=== PATIENT | female | born 1945 | race Caucasian/White ===

== ENCOUNTER 2024-05-15 10:11 | Inpatient (IN) | payer BC, MEDICAID ==
[~2024-05-15] VITALS: Ht 167.6 cm; Wt 81.2 kg
[2024-05-15] MEDS ORDERED: levoFLOXacin 750MG/D5W 150 ML IV ONE (10:30)
[2024-05-15 10:51] LABS: BASOPHILS # (AUTO) 0.1 K/UL (0.0-0.2); BASOPHILS % (AUTO) 0.4 % (0.0-2.0); DIFFERENTIAL COMMENT 1; EOSINOPHILS % (AUTO) 0.3 % (0.0-7.0); HEMATOCRIT 37.2 % (31.2-41.9); HEMOGLOBIN 12.3 g/dL (10.9-14.3); LYMPHOCYTES # (AUTO) 0.4 K/uL (0.8-4.8); LYMPHOCYTES % (AUTO) 2.8 % (20.5-51.5); MEAN CORPUSCULAR HEMOGLOBIN 28.8 uug (24.7-32.8); MEAN CORPUSCULAR HGB CONC 33 g/dL (32.3-35.6); MEAN CORPUSCULAR VOLUME 87.2 fL (75.5-95.3); MONOCYTES # (AUTO) 1.3 K/uL (0.1-1.30); MONOCYTES % (AUTO) 8.8 % (0.0-11.0); NEUTROPHILS # (AUTO) 13.2 K/uL (1.8-8.9); NEUTROPHILS % (AUTO) 87.7 % (38.5-71.5); PLATELET COUNT (AUTO) 230 K/uL (179-408); RED BLOOD CELL COUNT(AUTO) 4.27 MIL/uL (3.63-4.92); RED CELL DISTRIBUTION WIDTH 15.7 % (12.3-17.7)
[2024-05-15] MEDS ORDERED: DEXAMETHASONE SOD PHOSPHATE 10 MG INJ ONE (10:52)
[2024-05-15 10:56] LABS: ABG BASE EXCESS 5.7 mmol/L (-2.0-3.0); ABG PCO2 37.6 mmHg (32.0-45.0); ABG PH 7.505 (7.350-7.450); ABG PO2 80.7 mmHg (83.0-108.0); ABG SITE RIGHT RADIAL; ABG TOTAL HEMOGLOBIN 13.2 G/dL (12.0-16.0); AaDO2 96.8 mmHg; COHb 0.9 % (0.5-1.5); MetHb 0.2 % (0.0-1.5); O2Hb 95.6 % (94.0-98.0)
[2024-05-15] MEDS: DEXAMETHASONE SOD PHOSPHATE 4 MG INJ IV ONE (10:58)
[2024-05-15] MEDS: IV NORMAL SALINE 1000 ML BAG IV ONE (10:58)
[2024-05-15 10:59] LABS: CALCIUM 9.1 mg/dL (8.5-10.1); CARBON DIOXIDE 28 mmol/L (21-32); CHLORIDE 106 mmol/L (98-107); GLUCOSE 113 mg/dL (74-106); SODIUM SERUM 144 mmol/L (136-145); UREA NITROGEN, BLOOD 19 mg/dL (7-18)
[2024-05-15] MEDS ORDERED: CLINDAMYCIN 600 MG PIGGYBACK**ER OMNI IV ONE (11:04)
[2024-05-15] MEDS: CLINDAMYCIN PHOSPHATE IV 600 MG in IV DEXTROSE 5% 100 ML IV ONE (11:08)
[2024-05-15 11:15] LABS: ALANINE AMINOTRANSFERASE 6 U/L (14-59); ALBUMIN 2.8 g/dL (3.4-5.0); ALKALINE PHOSPHATASE 89 U/L (50-136); ASPARTATE AMINOTRANSFERASE 11 U/L (15-37); BILIRUBIN,DIRECT 0.2 mg/dL (0.0-0.2); NT-PRO BNP 474 pg/mL (0-125); TOTAL PROTEIN, SERUM 6.4 g/dL (6.4-8.2)
[2024-05-15] MEDS ORDERED: CEFEPIME HCL 1 G VIAL ONE (11:43)
[2024-05-15] MEDS: CEFEPIME HCL 1 G in IV DEXTROSE 5% 50 ML IV ONE (11:54)
[2024-05-15 12:11] LABS: *BILIRUBIN,URIN NEGATIVE (NEGATIVE); *BLOOD, URINE NEGATIVE (NEGATIVE); *CLARITY,URINE CLEAR (CLEAR); *COLOR,URINE YELLOW (YELLOW); *KETONES,URINE NEGATIVE (NEGATIVE); *PROTEIN,URINE NEGATIVE (NEGATIVE); *UROBILINOGEN,URINE 0.2 E.U./dl (NORMAL); LEUKOCYTE ESTERASE ,URINE NEGATIVE (NEGATIVE); NITRITE, URINE NEGATIVE (NEGATIVE); PH,URINE 6.5 (5.0-8.0); UGLUCOSE NEGATIVE (NEGATIVE)
[2024-05-15] MEDS ORDERED: QUET25TA PO (12:15)
[2024-05-15] MEDS ORDERED: [UNRECOGNIZED DRUG - OTHER] PO (12:15)
[2024-05-15] MEDS ORDERED: FURO40TA5 PO (12:15)
[2024-05-15] MEDS ORDERED: GABA300C PO (12:15)
[2024-05-15] MEDS ORDERED: AZITHROMYCIN 500MG/ D5W 250ML IVPB **ER PYXIS ONLY IV ONE (12:27)
[2024-05-15] MEDS ORDERED: MORPHINE SULFATE 2 MG/1 ML DISP.SYRIN IVP PRN (12:30)
[2024-05-15] MEDS ORDERED: hydrALAZINE HCL 20 MG/1 ML VIAL IV PRN (12:30)
[2024-05-15] MEDS ORDERED: ALBUTEROL SULFATE 8 GM HFA.AER.AD IH PRN (12:30)
[2024-05-15] MEDS ORDERED: ONDANSETRON 4 MG/2 ML VIAL IV PRN (12:30)
[2024-05-15] MEDS: AZITHROMYCIN IV 500 MG in IV DEXTROSE 5% 250 ML IV ONE (12:39)
[2024-05-15] MEDS ORDERED: CEFEPIME HCL 1 G in IV DEXTROSE 5% 50 ML IV SCH (14:00)
[2024-05-15 14:53] VITALS: BP 111/52; TEMP 97.8; O2SAT 98
[2024-05-15] MEDS: QUETIAPINE FUMARATE 25 MG TABLET PO SCH (17:23)
[2024-05-15] MEDS: HEPARIN SODIUM,PORCINE 5,000 UNITS/ML VIAL SQ SCH (17:24)
[2024-05-15] MEDS: VANCOMYCIN IV 1,000 MG in IV DEXTROSE 5% 250 ML IV SCH (17:24)
[2024-05-15 19:47] VITALS: BP 105/63; TEMP 97.3; O2SAT 93
[2024-05-15] MEDS: REMEDY ESSENTIAL ZINC PASTE 113 GM TOP SCH (20:32)
[2024-05-15] MEDS: CEFEPIME HCL 1 G in IV DEXTROSE 5% 50 ML IV SCH (22:57)
[2024-05-16] VITALS (9 sets, daily range): BP systolic 101–118; BP diastolic 44–47; TEMP 97.7–98.1; O2SAT 95–98
[2024-05-16 07:06] LABS: BASOPHILS % (AUTO) 0.4 % (0.0-2.0); EOSINOPHILS % (AUTO) 0.1 % (0.0-7.0); HEMATOCRIT 34.5 % (31.2-41.9); HEMOGLOBIN 11.4 g/dL (10.9-14.3); LYMPHOCYTES % (AUTO) 7.7 % (20.5-51.5); MEAN CORPUSCULAR HEMOGLOBIN 28.9 uug (24.7-32.8); MEAN CORPUSCULAR HGB CONC 33 g/dL (32.3-35.6); MEAN CORPUSCULAR VOLUME 87.2 fL (75.5-95.3); MONOCYTES % (AUTO) 7.7 % (0.0-11.0); NEUTROPHILS # (AUTO) 11.1 K/uL (1.8-8.9); NEUTROPHILS % (AUTO) 84.1 % (38.5-71.5); PLATELET COUNT (AUTO) 237 K/uL (179-408); RED BLOOD CELL COUNT(AUTO) 3.95 MIL/uL (3.63-4.92); RED CELL DISTRIBUTION WIDTH 15.7 % (12.3-17.7); WHITE BLOOD COUNT (AUTO) 13.2 K/uL (3.8-11.8)
[2024-05-16 07:27] LABS: DIFFERENTIAL COMMENT 1
[2024-05-16 07:49] LABS: ALANINE AMINOTRANSFERASE 13 U/L (14-59); ALBUMIN 2.2 g/dL (3.4-5.0); ALKALINE PHOSPHATASE 71 U/L (50-136); ASPARTATE AMINOTRANSFERASE 10 U/L (15-37); BILIRUBIN,TOTAL 0.5 mg/dL (0.2-1.0); CALCIUM 8.2 mg/dL (8.5-10.1); CARBON DIOXIDE 28 mmol/L (21-32); CHLORIDE 107 mmol/L (98-107); CREATININE 0.7 mg/dL (0.6-1.3); GLUCOSE 118 mg/dL (74-106); PHOSPHOROUS 2.4 mg/dL (2.5-4.9); POTASSIUM 3.2 mmol/L (3.5-5.1); SODIUM SERUM 142 mmol/L (136-145); TOTAL PROTEIN, SERUM 5.7 g/dL (6.4-8.2); UREA NITROGEN, BLOOD 16 mg/dL (7-18)
[2024-05-16] MEDS ORDERED: [UNRECOGNIZED DRUG - OTHER] PO SCH (09:00)
[2024-05-16] MEDS: GABAPENTIN 300 MG CAPSULE PO SCH ×2 (09:00→21:40)
[2024-05-16] MEDS: FUROSEMIDE 40 MG TABLET PO SCH (09:00)
[2024-05-16] MEDS: FLUTICASONE/VILANTEROL 1 EACH BLST.W.DEV INH SCH (09:03)
[2024-05-16] MEDS ORDERED: ALBU2.5V38 IH (12:32)
[2024-05-16] MEDS ORDERED: IPRA0.2S48 NEB (12:32)
[2024-05-16] MEDS: ALBUTEROL SULFATE 1.25 MG/3 ML NEBU NEB SCH (13:32)
[2024-05-16] MEDS: NICOTINE 7 MG/24HR PATCH TD SCH (13:45)
[2024-05-16] MEDS: POTASSIUM CHLORIDE 20 MEQ TAB.PRT.SR PO SCH (13:46)
[2024-05-16] MEDS: NEUTRA PHOS PACKET PO ONE (16:41)
[2024-05-16] MEDS: QUETIAPINE FUMARATE 25 MG TABLET PO SCH (21:28)
[2024-05-16] MEDS ORDERED: GABAPENTIN 100 MG CAPSULE ONE (21:34)
[2024-05-17] VITALS (10 sets, daily range): BP systolic 102–127; BP diastolic 43–59; TEMP 97.9–98.2; O2SAT 94–98
[2024-05-17] MEDS: ACETAMINOPHEN 325 MG TABLET PO PRN (02:55)
[2024-05-17 07:32] LABS: BASOPHILS # (AUTO) 0.1 K/UL (0.0-0.2); BASOPHILS % (AUTO) 0.6 % (0.0-2.0); EOSINOPHILS # (AUTO) 0.2 K/uL (0.0-0.7); EOSINOPHILS % (AUTO) 1.5 % (0.0-7.0); HEMATOCRIT 33.8 % (31.2-41.9); HEMOGLOBIN 11.2 g/dL (10.9-14.3); LYMPHOCYTES # (AUTO) 0.8 K/uL (0.8-4.8); LYMPHOCYTES % (AUTO) 7.2 % (20.5-51.5); MEAN CORPUSCULAR HEMOGLOBIN 28.9 uug (24.7-32.8); MEAN CORPUSCULAR HGB CONC 33 g/dL (32.3-35.6); MEAN CORPUSCULAR VOLUME 87.1 fL (75.5-95.3); MONOCYTES # (AUTO) 1.3 K/uL (0.1-1.30); MONOCYTES % (AUTO) 11.6 % (0.0-11.0); NEUTROPHILS % (AUTO) 79.1 % (38.5-71.5); PLATELET COUNT (AUTO) 221 K/uL (179-408); RED BLOOD CELL COUNT(AUTO) 3.88 MIL/uL (3.63-4.92); WHITE BLOOD COUNT (AUTO) 11.4 K/uL (3.8-11.8)
[2024-05-17 07:38] LABS: DIFFERENTIAL COMMENT 1
[2024-05-17 07:49] LABS: CALCIUM 8.2 mg/dL (8.5-10.1); CARBON DIOXIDE 27 mmol/L (21-32); CHLORIDE 110 mmol/L (98-107); CREATININE 0.8 mg/dL (0.6-1.3); GLUCOSE 84 mg/dL (74-106); PHOSPHOROUS 2.2 mg/dL (2.5-4.9); POTASSIUM 3.5 mmol/L (3.5-5.1); SODIUM SERUM 144 mmol/L (136-145); UREA NITROGEN, BLOOD 15 mg/dL (7-18)
[2024-05-17] MEDS ORDERED: GEMTESA 75 MG PO SCH (09:00)
[2024-05-17] MEDS: POTASSIUM PHOSPHATE MM 7.5 MMOL in IV NORMAL SALINE 97.5 ML IV ONE (12:26)
[2024-05-17] MEDS: GEMTESA 75 MG PO SCH (19:57)
[2024-05-17] MEDS: CEFEPIME HCL 2 GM in IV DEXTROSE 5% 100 ML IV SCH (20:46)
[2024-05-18] VITALS (11 sets, daily range): BP systolic 97–129; BP diastolic 43–65; TEMP 97.7–98.6; O2SAT 95–100
[2024-05-18 08:24] LABS: BASOPHILS # (AUTO) 0.1 K/UL (0.0-0.2); BASOPHILS % (AUTO) 0.6 % (0.0-2.0); EOSINOPHILS # (AUTO) 0.3 K/uL (0.0-0.7); EOSINOPHILS % (AUTO) 3.3 % (0.0-7.0); HEMATOCRIT 34.7 % (31.2-41.9); HEMOGLOBIN 11.6 g/dL (10.9-14.3); LYMPHOCYTES # (AUTO) 0.9 K/uL (0.8-4.8); LYMPHOCYTES % (AUTO) 10.1 % (20.5-51.5); MEAN CORPUSCULAR HEMOGLOBIN 29.5 uug (24.7-32.8); MEAN CORPUSCULAR HGB CONC 33 g/dL (32.3-35.6); MEAN CORPUSCULAR VOLUME 88.3 fL (75.5-95.3); MONOCYTES % (AUTO) 10.5 % (0.0-11.0); NEUTROPHILS # (AUTO) 6.9 K/uL (1.8-8.9); NEUTROPHILS % (AUTO) 75.5 % (38.5-71.5); PLATELET COUNT (AUTO) 213 K/uL (179-408); RED BLOOD CELL COUNT(AUTO) 3.93 MIL/uL (3.63-4.92); RED CELL DISTRIBUTION WIDTH 16.4 % (12.3-17.7); WHITE BLOOD COUNT (AUTO) 9.2 K/uL (3.8-11.8)
[2024-05-18 08:47] LABS: DIFFERENTIAL COMMENT 1
[2024-05-18 09:17] LABS: ALANINE AMINOTRANSFERASE 12 U/L (14-59); ALBUMIN 2.1 g/dL (3.4-5.0); ALKALINE PHOSPHATASE 73 U/L (50-136); ASPARTATE AMINOTRANSFERASE 8 U/L (15-37); BILIRUBIN,TOTAL 0.9 mg/dL (0.2-1.0); CALCIUM 8.2 mg/dL (8.5-10.1); CARBON DIOXIDE 28 mmol/L (21-32); CHLORIDE 106 mmol/L (98-107); CHOLESTEROL 125 mg/dL (<200); CREATININE 0.7 mg/dL (0.6-1.3); GLUCOSE 83 mg/dL (74-106); HDL CHOLESTEROL 48 mg/dL (40-60); PHOSPHOROUS 2.7 mg/dL (2.5-4.9); POTASSIUM 3.5 mmol/L (3.5-5.1); SODIUM SERUM 142 mmol/L (136-145); TOTAL PROTEIN, SERUM 5.7 g/dL (6.4-8.2); TRIGLYCERIDES 90 MG/DL (30-150); UREA NITROGEN, BLOOD 12 mg/dL (7-18)
[2024-05-18 10:15] LABS: THYROID STIMULATING HORMONE 2.716 mIU/mL (0.358-3.740)
[2024-05-18] MEDS: CLOTRIMAZOLE 1% CREAM 30 GM TUBE TOP SCH (13:04)
[2024-05-18] MEDS: ENSURE ENLIVE (VAN) 240 ML LIQUID PO SCH (17:00)
[2024-05-19] VITALS (12 sets, daily range): BP systolic 95–134; BP diastolic 44–81; TEMP 97.8–99.2; O2SAT 88–99
[2024-05-19] MEDS ORDERED: LEVO500T90 PO (16:05)
== END 2024-05-19 17:45 | disposition home health service (06) | DRG 871 ==
LOC: ER 10:11 → TELE3 10:36 → MEDSURG3 15:01
PROVIDERS: ADMIT Internal Medicine; ATTEND Internal Medicine
PROC: 05HD33Z Insertion of Infusion Device into Right Cephalic Vein, Percutaneous Approach (ICD-10-PCS; principal; 2024-05-17)
DX: A41.9 Sepsis, unspecified organism (principal); G92.8 Other toxic encephalopathy; J15.9 Unspecified bacterial pneumonia; J96.01 Acute respiratory failure with hypoxia; J69.0 Pneumonitis due to inhalation of food and vomit; J44.0 Chronic obstructive pulmonary disease with (acute) lower respiratory infection; J44.1 Chronic obstructive pulmonary disease with (acute) exacerbation; E44.0 Moderate protein-calorie malnutrition; M48.54XA Collapsed vertebra, not elsewhere classified, thoracic region, initial encounter for fracture; R65.20 Severe sepsis without septic shock; Z96.643 Presence of artificial hip joint, bilateral; Z87.891 Personal history of nicotine dependence; Z86.73 Personal history of transient ischemic attack (TIA), and cerebral infarction without residual deficits; Z88.0 Allergy status to penicillin; J43.9 Emphysema, unspecified; Z87.01 Personal history of pneumonia (recurrent); E87.6 Hypokalemia; Z87.440 Personal history of urinary (tract) infections; Z86.14 Personal history of Methicillin resistant Staphylococcus aureus infection; J98.4 Other disorders of lung; Z68.28 Body mass index [BMI] 28.0-28.9, adult; E66.9 Obesity, unspecified; Z79.899 Other long term (current) drug therapy; I50.9 Heart failure, unspecified
CPT/HCPCS: 36415; 36600; 71045; 71250; 83605; 83735; 84100; 84443; 84484; 85025; 85730; 87040; 94640; 94760; A4606; A4663; A9150; C1758; G0378; J0456; J0692; J1100; J1644; J1956; J3370; J3490; J3535; J7040; J7050